=== PATIENT | female | born 1955 | race Two or more races ===

== ENCOUNTER 2024-08-22 08:09 | Observation (INO) | payer OTHER ==
[~2024-08-22] VITALS: Ht 175.3 cm; Wt 75.5 kg
[~2024-08-22 08:09] MED LIST: ALEN70SO2 OR; CALC1TAB92 PO; MULT-1018 PO
[2024-08-22] MEDS ORDERED: LIDOCAINE 1% INJ PF 5ML AMP ONE (08:14)
[2024-08-22] MEDS ORDERED: ONDANSETRON HCL 4 MG/2 ML VIAL ONE (08:14)
[2024-08-22] MEDS ORDERED: KETOROLAC TROMETH 30 MG/ML 1ML VIAL ONE (08:14)
[2024-08-22] MEDS ORDERED: DexAMETHasone SOD PHOS 10MG/1ML VIAL INJ ONE (08:14)
[2024-08-22] MEDS ORDERED: PROPOFOL 10 MG/ML 20 ML IV ONE ×2 (08:15→11:22)
[2024-08-22] MEDS ORDERED: GLYCOPYRROLATE 0.2 MG/ML 1ML VIAL ONE (08:15)
[2024-08-22] MEDS: BUPIVACAINE HCL 50 ML ONE (08:20)
[2024-08-22] MEDS: TRANEXAMIC ACID 20 ML ONE (08:20)
[2024-08-22] MEDS: CEFEPIME 1GM/ 50ML 50 ML IV ONE (08:20)
[2024-08-22] MEDS: KETOROLAC TROMETH 30 MG/ML 1ML VIAL ONE (08:21)
[2024-08-22] MEDS: VANCOMYCIN HCL 1000 MG VL ONE ×2 (08:22→08:41)
[2024-08-22] MEDS: CELECOXIB 100 MG CAP ONE (08:42)
[2024-08-22] MEDS: ACETAMINOPHEN IV 100 ML IV ONE (08:43)
[2024-08-22] MEDS: PREGABALIN CAPSULE 75 MG CAP ONE (08:43)
[2024-08-22] MEDS: CELECOXIB 100 MG CAP PO ONE ×2 (08:45→09:30)
[2024-08-22] MEDS: ACETAMINOPHEN IV 1000 MG/100ML (10MG/ML) IV ONE ×2 (08:45→09:30)
[2024-08-22] MEDS: PREGABALIN CAPSULE 75 MG CAP PO ONE (08:45)
[2024-08-22] MEDS: GABAPENTIN 300 MG CAP PO ONE (09:30)
[2024-08-22] MEDS ORDERED: MORPHINE SULF PF 5 MG/10 ML VIAL ONE (09:34)
[2024-08-22] MEDS ORDERED: MORPHINE SULFATE INJ 2 MG/ml SYRG IV PRN (10:00)
[2024-08-22] MEDS ORDERED: ONDANSETRON HCL 4 MG/2 ML VIAL IV PRN ×2 (10:00→12:00)
[2024-08-22] MEDS: CEFEPIME 1GM/ 50ML 50 ML IV SCH (10:00)
[2024-08-22] MEDS ORDERED: ceFAZolin 1GM/50ML 50 ML IV SCH (10:00)
[2024-08-22] MEDS: DOCUSATE SOD 100 MG CAP PO SCH (10:00)
[2024-08-22] MEDS ORDERED: HYDROmorphone HCL 2 MG/ML VL/or syr IV PRN ×2 (10:00→12:00)
[2024-08-22] MEDS ORDERED: NITROGLYCERIN 0.4 MG SL TAB SL PRN (10:00)
[2024-08-22] MEDS ORDERED: ePHEDrine SULFATE 50 MG/ML AMP ONE (10:08)
--- NOTE | 2024-08-22 11:36 | DVHOP2 ---
Operative Report - 2 Report Details Date: 08/22/24 Preop Diagnosis: left knee medial compartment DJD Postop Diagnosis: same Surgeon: Chino Baltazar MD Detention Worker: Huseyin Juan MD Anesthesiologist: JUAN Moralez Anesthesia: Regional Implant: Jennyfer, Persona cemented UKA. LEFT MEDIAL 4F, ET, 8mm poly Consent: The patient was informed of the risks and benefits of the procedure. These include but are not limited to complications of anesthesia, postoperative infection, incomplete relief of symptoms, recurrence of symptoms, damage to blood vessels, nerves and tendons, deep venous thrombosis, pulmonary embolism and possible need for repeat surgery in the future. Estimated Blood Loss: 10ml Findings: Severe medial compartmnet DJD,intact ACL, mild PF and lateral compartment disease Name of Procedure Performed LEFT UNICOMPARTMENTAL KNEE ARTHROPLASTY Procedure Details Procedure Details: The patient was brought to the operating room and placed in the supine position on the operating table. After the induction of adequate anesthesia, the left lower extremity was prepped and draped in the usual sterile fashion. A minimally invasive midvastus approach was carefully performed. Dissection was carried down through the subcutaneous tissue, and the medial capsule was incised to expose the knee joint. The patella was subluxated and patella femoral compartment, notch and lateral compartment were inspected and patient was deemed appropriate for mUKA. The knee was flexed to allow for optimal exposure of the medial compartment. Attention was directed to the medial compartment, where degenerative changes were confirmed. The tibial and femoral surfaces were prepared using the Jennyfer Persona instrumentation. a 9mm gap was confirmed in flexion and extension. The medial meniscus, redundant synovium and osteophytes were removed. Appropriate sizing was confirmed, and the 4 femoral component and E tibial component were selected. Trial components were placed, and the knee was taken through a range of motion to ensure proper alignment, stability, and tracking. An 8mm polyethylene insert was trialed and found to provide excellent stability and range of motion without patellar impingement on the component The trial components were removed, and the bony surfaces were thoroughly irrigated and dried. The definitive femoral and tibial components were cemented into place using bone cement. Excess cement was meticulously removed. The 8mm polyethylene insert was then placed, and the knee was again taken through a full range of motion to confirm proper function and stability. Hemostasis was achieved, and the wound was irrigated with normal saline. The medial capsule was closed with interrupted sutures, and the subcutaneous tissue was closed with absorbable sutures. The skin was closed with rae. A sterile dressing was applied, and the patient was transferred to the recovery room in stable condition. Condition Good Disposition Home with Health Services CHINO BALTAZAR DO Aug 22, 2024 11:36
[2024-08-22 11:55] VITALS: PULSE 65; RESP 16; O2SAT 100
[2024-08-22] MEDS ORDERED: NALOXONE HCL 0.4 MG/ML VIAL IV PRN (12:00)
[2024-08-22] MEDS ORDERED: hydrALAZINE HCL 20 MG/ML VL IV PRN (12:00)
[2024-08-22] MEDS ORDERED: oxyCODONE HCL 5MG TAB PO PRN (12:00)
[2024-08-22] MEDS ORDERED: ePHEDrine SULFATE 50 MG/ML AMP IV PRN (12:00)
[2024-08-22] MEDS ORDERED: fentaNYL CITRATE 100 MCG/2 ML VL IV PRN (12:00)
[2024-08-22] MEDS ORDERED: FLUMAZENIL 0.1 MG/ML INJ 10ML MDV IV PRN (12:00)
--- NOTE | 2024-08-22 12:58 | DVH ---
CLINICAL INDICATION: Pain; S/P SURGERY TECHNIQUE: 3 radiographic views of the left knee were obtained. Comparison: None FINDINGS/IMPRESSION: Postsurgical changes from medial knee arthroplasty.
[2024-08-22] MEDS ORDERED: MORPHINE SULFATE 4 MG/ML SYR/VIAL IV PRN (13:45)
[2024-08-22] MEDS: ceFAZolin 1GM/50ML 50 ML IV SCH (13:46)
[2024-08-22] MEDS: SODIUM CHLOR 0.9% PF (SALINE LOCK) 10ML VIAL/SYR IV SCH (14:00)
[2024-08-22] MEDS: LACTATED RINGER'S 1,000 ML IV SCH (15:00)
[2024-08-22 15:35] VITALS: BP 130/94; PULSE 58; RESP 18; TEMP 97.2; O2SAT 99
--- NOTE | 2024-08-22 16:31 | DVHINCON2 ---
Date Seen: Aug 22, 2024 Referring Physician Orthopedic surgery. Reason for Consultation Medical management. History of Present Illness 68-year-old female with a known history of osteoporosis, left knee DJD joint disease of the medial compartment initially presented to the hospital for electi ve procedure. Patient is currently status post left knee unicompartment arthroplasty. Post upgraded patient did fairly well. Patient denies any history of known hypertension diabetes or any heart disease. Past Medical History Osteoporosis Left knee degenerative joint disease. Past Surgical History Status post left unicompartment knee arthroplasty. Total hysterectomy. Allergies: Coded Allergies: Penicillins (Unverified Allergy, Mild, rash, hives, fever , 08/19/24) Sulfa Antibiotics (Unverified Allergy, Mild, rash, hives, fever, 08/19/24) Home Meds Reported Medications Multiple Vitamin (Multivitamins) Tab, 1 TAB PO DAILY, #30 TAB 2 Refills 08/19/24 Calcium Carbonate (Calcium) 600 Mg Tab, 600 MG PO, TAB 08/19/24 Alendronate Sodium (ALENDRONATE SODIUM) 70 Mg/75 Ml Clara, 70 MG OR QWEEKLY, ML 08/19/24 Current Medications Current Medications Medications (Trade) Dose Ordered Sig/Tirso Route PRN Reason Start Time Stop Time Status Last Admin Cefepime HCl 50 ml @ 12.5 mls/hr DAILY IV 08/22/24 10:00 08/22/24 13:59 DC Lactated Ringer's 1,000 ml @ 100 mls/hr Q10H IV 08/22/24 10:00 Sodium Chloride (Saline Lock Ns) 10 ml Q8HR IV 08/22/24 14:00 08/22/24 14:00 Cefazolin Sodium 50 ml @ 50 mls/hr Q6H IV 08/22/24 10:00 08/22/24 13:36 DC Oxycodone/ Acetaminophen (Percocet 5/ 325MG Tablet) 1 tab Q4HP PRN PO MODERATE PAIN 08/22/24 10:00 Hydromorphone HCl (Dilaudid Injection) 1 mg Q2HP PRN IV SEVERE PAIN (7-10 PAIN SCALE) 08/22/24 10:00 Ondansetron HCl (Zofran) 4 mg Q6HP PRN IV NAUSEA / VOMITING 08/22/24 10:00 Docusate Sodium (Colace Capsule) 100 mg Q12HR PO 08/22/24 10:00 Nitroglycerin (Ntrostat Sublingual) 0.4 mg Q5MINP PRN SL FOR CHEST PAIN 08/22/24 10:00 Morphine Sulfate 2 mg Q30M PRN IV FOR CHEST PAIN 08/22/24 10:00 Cancel Aspirin 325 mg DAILY PO 08/23/24 10:00 Ondansetron HCl (Zofran) 4 mg ONCE PRN IV NAUSEA / VOMITING 08/22/24 12:00 08/22/24 12:24 DC Naloxone HCl (Narcan) 0.4 mg Q10M PRN IV NARCOTIC REVERSAL 08/22/24 12:00 08/22/24 12:24 DC Flumazenil (Romazicon Injection) 0.2 mg ONCE PRN IV BENZODIAZEPINE REVERSAL 08/22/24 12:00 08/22/24 12:24 DC Hydralazine HCl (Apresoline Injection) 5 mg Q10M PRN IV SBP>160 08/22/24 12:00 08/22/24 12:51 DC Ephedrine Sulfate (ePHEDrine SULFATE) 10 mg Q10M PRN IV SBP LESS THAN 90 08/22/24 12:00 08/22/24 12:41 DC Fentanyl Citrate 25 mcg Q1HP PRN IV BREAKTHROUGH PAIN (7-10) 08/22/24 12:00 08/22/24 12:24 DC Hydromorphone HCl (Dilaudid Injection) 0.5 mg Q10M PRN IV SEVERE PAIN (7-10 PAIN SCALE) 08/22/24 12:00 08/22/24 12:41 DC Oxycodone HCl 10 mg ONCE PRN PO MODERATE PAIN (4-6 PAIN SCALE) 08/22/24 12:00 Cefazolin Sodium 50 ml @ 50 mls/hr Q6H IV 08/22/24 16:00 08/22/24 13:59 DC 08/22/24 13:46 Morphine Sulfate 2 mg Q30M PRN IV FOR CHEST PAIN 08/22/24 13:45 Review of Systems Twelve review of system were negative except mentioned above. 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 1. Osteoporosis 2. Left knee medial compartment degenerative joint disease status post left knee unicompartment arthroplasty. -pain meds as needed, DVT GI prophylaxis, discharge plan per Orthopedics. Plan discussed with: Patient Date of Service: Aug 22, 2024 Billing Provider: GUS JAMISON MD Common Visit Codes: NOT BILLABLE GUS JAMISON MD Aug 22, 2024 16:31
[2024-08-22 17:00] VITALS: BP 132/84; PULSE 62; RESP 18; TEMP 97.2; O2SAT 98
[2024-08-22 21:00] VITALS: BP 116/70; PULSE 72; RESP 18; TEMP 98.3; O2SAT 95
[2024-08-23 01:00] VITALS: BP 102/66; PULSE 48; RESP 17; TEMP 97.9; O2SAT 95
[2024-08-23 05:00] VITALS: BP_SYST 109; BP_SYST 86; BP_DIAS 48; BP_DIAS 68; PULSE 49; PULSE 75; RESP 18; TEMP 98; O2SAT 95; O2SAT 99
[2024-08-23 06:46] LABS: Hemoglobin 11.8 g/dL (12.2-16.2)
[2024-08-23 06:50] LABS: Alanine Aminotransferase 16 U/L (7-40); Albumin 3.9 g/dL (3.2-4.8); Alkaline Phosphatase 48 U/L (46-116); Anion Gap 9 (5-15); BUN/Creatinine Ratio 21.9 (10.0-20.0); Blood Urea Nitrogen 14 mg/dL (9-23); Calcium 9.1 mg/dL (8.7-10.4); Carbon Dioxide 27 mmol/L (20-31); Chloride 106 mmol/L (98-107); Potassium 4.4 mmol/L (3.5-5.1); Sodium 142 mmol/L (136-145)
[2024-08-23 06:51] LABS: Bilirubin, Total 0.7 mg/dL (0.2-1.0)
[2024-08-23 06:53] LABS: Glucose 122 mg/dL (74-106); Total Protein 5.7 g/dL (5.7-8.2)
[2024-08-23 07:28] LABS: Aspartate Aminotransferase 20 U/L (13-40)
--- NOTE | 2024-08-23 08:01 | DVHPN2 ---
Progress Note Date Seen: Aug 23, 2024 Medical Necessity Reason Pt with a Central, PICC or Fol: No Subjective Patient reports: No new complaints Objective vital signs Vital Sign Date Time Temp Pulse Resp B/P (MAP) Pulse Ox O2 Delivery O2 Flow Rate FiO2 08/23/24 05:00 98.0 49 18 86/48 (61) 95 98.0 08/22/24 20:00 Room Air* 0 21 Total Intake and Output 08/22/24 08/22/24 08/23/24 15:00 23:00 07:00 Intake Total 100 ml 300 ml 550 ml Balance 100 ml 300 ml 550 ml medications Current Medications Medications Dose Ordered Sig/Tirso Route Start Time Stop Time Status Last Admin Dose Admin Lactated Ringer's 1,000 ml @ 100 mls/hr Q10H IV 08/22/24 10:00 Sodium Chloride 10 ml Q8HR IV 08/22/24 14:00 08/23/24 05:35 10 ML Oxycodone/ Acetaminophen 1 tab Q4HP PRN PO 08/22/24 10:00 Hydromorphone HCl 1 mg Q2HP PRN IV 08/22/24 10:00 Ondansetron HCl 4 mg Q6HP PRN IV 08/22/24 10:00 Docusate Sodium 100 mg Q12HR PO 08/22/24 10:00 08/22/24 21:14 100 MG Nitroglycerin 0.4 mg Q5MINP PRN SL 08/22/24 10:00 Morphine Sulfate 2 mg Q30M PRN IV 08/22/24 10:00 Cancel Aspirin 325 mg DAILY PO 08/23/24 10:00 Oxycodone HCl 10 mg ONCE PRN PO 08/22/24 12:00 Morphine Sulfate 2 mg Q30M PRN IV 08/22/24 13:45 Examination: GENERAL:Normal, MSK:Abnormal laboratory and microbiology Laboratory Tests 08/23/24 05:08 Test 08/23/24 05:08 Range/Units Serum Glucose 122 H 74-106 mg/dL Problem List/Assessment/Plan Problem List/Assessment/Plan 68 year old female who is s/p left knee unicompartmental arthroplasty POD 1 1. WBAT with walker 2. Physical therapy 3. CPM as ordered 4. DVT ppx 5. pain control Plan discussed with: Patient Date of Service: Aug 23, 2024 Billing Provider: ARMIN YANG MD Common Visit Codes: NOT BILLABLE ROOSEVELT BLAND NP Aug 23, 2024 08:01
[2024-08-23 08:30] VITALS: BP 107/64; PULSE 50; RESP 16; TEMP 97.9; O2SAT 96; O2SAT 98
[2024-08-23] MEDS: ASPirin 325 MG TAB PO SCH (09:28)
[2024-08-23 12:30] VITALS: BP 115/71; PULSE 59; RESP 18; TEMP 98; O2SAT 98
[2024-08-23 16:30] VITALS: BP 113/69; PULSE 54; RESP 16; TEMP 98.4; O2SAT 98
--- NOTE | 2024-08-23 18:01 | DVHPN2 ---
Subjective Overnight event noted. Currently we are waiting for CPM machine. 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 Current Medications Medications Dose Ordered Sig/Tirso Route Start Time Stop Time Status Last Admin Dose Admin Lactated Ringer's 1,000 ml @ 100 mls/hr Q10H IV 08/22/24 10:00 Sodium Chloride 10 ml Q8HR IV 08/22/24 14:00 08/23/24 05:35 10 ML Oxycodone/ Acetaminophen 1 tab Q4HP PRN PO 08/22/24 10:00 Hydromorphone HCl 1 mg Q2HP PRN IV 08/22/24 10:00 Ondansetron HCl 4 mg Q6HP PRN IV 08/22/24 10:00 Docusate Sodium 100 mg Q12HR PO 08/22/24 10:00 08/23/24 09:25 100 MG Nitroglycerin 0.4 mg Q5MINP PRN SL 08/22/24 10:00 Morphine Sulfate 2 mg Q30M PRN IV 08/22/24 10:00 Cancel Aspirin 325 mg DAILY PO 08/23/24 10:00 Oxycodone HCl 10 mg ONCE PRN PO 08/22/24 12:00 Morphine Sulfate 2 mg Q30M PRN IV 08/22/24 13:45 Laboratory Results Laboratory Tests 08/23/24 05:08 Chemistry Test 08/23/24 05:08 Albumin 3.9 g/dL (3.2-4.8) Calcium Level 9.1 mg/dL (8.7-10.4) Total Protein 5.7 g/dL (5.7-8.2) LFT Test 08/23/24 05:08 Alanine Aminotransferase (ALT) 16 U/L (7-40) Alkaline Phosphatase 48 U/L (46-116) Aspartate Amino Transferase (AST) 20 U/L (13-40) Total Bilirubin 0.7 mg/dL (0.2-1.0) Assessment/Plan Assessment/Plan 68-year-old female with a known history of osteoporosis, left knee degenerative joint disease in his has been with the hospital for elective procedure. 1. Osteoporosis 2. Left knee medial compartment degenerative joint disease status post left knee unicompartment arthroplasty. -pain meds as needed, DVT GI prophylaxis, discharge plan per Orthopedics. Plan discussed with: Patient Date of Service: Aug 23, 2024 Billing Provider: GUS JAMISON MD Common Visit Codes: NOT BILLABLE GUS JAMISON MD Aug 23, 2024 18:01
[2024-08-23 21:00] VITALS: BP 112/71; PULSE 55; RESP 18; TEMP 98.2; O2SAT 96
[2024-08-23] MEDS: OXYCODONE W/ ACETAMINOPHEN 5/325MG TABLET PO PRN (22:22)
[2024-08-24 01:00] VITALS: BP 120/76; PULSE 50; RESP 18; TEMP 97.9; O2SAT 95
[2024-08-24 05:00] VITALS: BP 115/69; PULSE 45; RESP 17; TEMP 97.9; O2SAT 96
[2024-08-24 07:40] LABS: Hematocrit 32.5 % (36.0-46.0); Hemoglobin 11.1 g/dL (12.2-16.2)
--- NOTE | 2024-08-24 07:50 | DVHDS2 ---
Discharge Summary Date of Admission Aug 22, 2024 at 09:46 Date of Discharge: Aug 24, 2024 Wounds: 1. You will likely have a gel-type dressing over your wound, you may keep this on for 7-14 days after leaving the hospital until your first post-op visit, unless it becomes soiled or your skin becomes irritated. If a wound vac dressing is placed on your knee this is to be left in place for one week and will be changed as needed. After your remove the dressing or wound vac, the home health nurse may place clean dry dressing over your wound. Keep wound covered, clean and dry for two weeks. 2. Hellier will be removed during your initial post-op visit. If you have concerns about our wound, please call the office immediately. If nervous about staple removal can take pain pill one hour prior to appointment. 3. If there is drainage from your wound, change the dressing daily until it stops. If drainage lasts more than 10 days, call our office. 4. Low grade (up to 100 degrees) fever is common for the first week after surgery. You should take your temperature daily. If you have fevers of 101 or more, please call the office. Labs/Diagnostic Data: Laboratory Results Test 08/24/24 05:41 08/23/24 05:08 Sodium Level 142 mmol/L (136-145) Potassium Level 4.4 mmol/L (3.5-5.1) Chloride Level 106 mmol/L (98-107) Carbon Dioxide Level 27 mmol/L (20-31) Anion Gap 9 (5-15) Blood Urea Nitrogen 14 mg/dL (9-23) Creatinine 0.64 mg/dL (0.550-1.02) Glomerular Filtration Rate Calc 97 mL/min (>90) BUN/Creatinine Ratio 21.9 (10.0-20.0) Serum Glucose 122 mg/dL (74-106) Calcium Level 9.1 mg/dL (8.7-10.4) Total Bilirubin 0.7 mg/dL (0.2-1.0) Aspartate Amino Transferase (AST) 20 U/L (13-40) Alanine Aminotransferase (ALT) 16 U/L (7-40) Alkaline Phosphatase 48 U/L (46-116) Total Protein 5.7 g/dL (5.7-8.2) Albumin 3.9 g/dL (3.2-4.8) Other Laboratory Tests 08/23/24 05:08 Brief Hx & Hospital Course: s/p partial left knee replacement Condition at Discharge: Good Final Diagnosis/Problems List same Discharge Disposition: Home with Health Services Discharge Instruct/Medications Diet: Regular Diet comment: may advance diet as tolerated, drink plenty of fluids. avoid alcohol while taking narcotics. Activity: See Comment Activity comment: 1. continue with CPM as ordered, increase flexion daily by 5 degrees 2. You can bear as much weight as you can tolerate 3. Use walker as needed for stability 4. Begin physical therapy as needed 5. no swimming for 6 weeks 6. no driving for 4 weeks Follow Up/Referral: 1.Driving is not permitted within the first 2 weeks. 2.Your first postoperative visit will take place 2 weeks after discharge. Please call the office once you are home from the hospital to arrange this appointment. 3.Antibiotic preventative treatment is required before dental or other invasive procedures. Please ask your surgeon about this at your first postoperative visit. If you experience chest pain, shortness of breath or severe painful calf swelling, go to the nearest emergency room to be evaluated. Please call our office once your situation is stabilized. Medications: 1.You will be discharged with pain medication, a blood thinner (unless you were previously on a blood thinner prior to surgery) and stool softener. Please follow the instructions regarding these medications as provided by your nurse at the hospital upon discharge. 2.Blood clots in the leg are a known complication of surgery. It is very important that you take the medication to protect against clots. Depending on what you are discharged on typically it is Lovenox 40mg daily for 2 weeks or Aspirin 81mg twice daily for 4 weeks. After you finish this, you should then take baby Aspirin (81mg) once daily for 2 weeks. 3.You should restart all of your prescription medications once discharged from the hospital/surgery center unless specifically instructed otherwise. 4.Herbal supplements may be restarted 2 weeks after surgery. 5.If you have been given Coumadin as a blood thinner, please follow up with your etcher machine during the first two weeks after surgery to review medications and overall medical well-being. 6.Please note that narcotic pain medication may cause constipation. Please remember to take stool softeners (Colace) when using narcotics to help reduce the change of constipation. You should not use alcohol together with narcotic medication. Discharge Statement: "Patient was advised to return to the ER or call 911 if any headaches, dizziness, shortness of breath, chest pain, abdominal pain, bleeding, fevers, or worsening of medical condition. Patient was counseled about treatment plan, medications, possible side effects, patientverbalized understanding. All questions were answered to the best of my ability. This discharge took greater then 30 minutes in planning, reviewing documentation, counseling the patient, and discussing with other team members." ASSESSMENT ASSESSMENT Assessment same ROOSEVELT BLAND NP Aug 24, 2024 07:50
[2024-08-24 08:30] VITALS: O2SAT 98
[2024-08-24 09:00] VITALS: BP 140/88; PULSE 53; RESP 18; TEMP 98; O2SAT 95
[2024-08-24 13:00] VITALS: BP 130/79; PULSE 50; RESP 18; TEMP 98.6; O2SAT 98
== END 2024-08-24 15:22 | disposition home or self-care (01) ==
LOC: SUR 08:09 → OVERFLOW 09:46 → CENTRAL 14:37
PROVIDERS: ADMIT Orthopaedic Surgery Adult Reconstructive Orthopaedic Surgery; ATTEND Orthopaedic Surgery
DX: M17.12 Unilateral primary osteoarthritis, left knee (principal); M81.0 Age-related osteoporosis without current pathological fracture; Z90.710 Acquired absence of both cervix and uterus; Z98.890 Other specified postprocedural states; Z79.899 Other long term (current) drug therapy
CPT/HCPCS: 27446; 36415; 73562; 80053; 85014; 85018; 86850; 86900; 86901; 97110; 97116; 97162; 97530; A4315; C1776; G0378; J0690; J0692; J1100; J1885; J2270; J2405; J2704; J3370; J3490; J7050; J0131